=== PATIENT | female | born 1975 | race Caucasian/White ===

== ENCOUNTER 2016-07-27 15:34 | Emergency (ER) | payer OTHER ==
[~2016-07-27] VITALS: Ht 172.7 cm; Wt 77.8 kg
[2016-07-27 16:01] VITALS: TEMP 36.8; Ht 172.7 cm; Wt 77.8 kg
[2016-07-27] MEDS ORDERED: DiphenhydrAMINE HCL 50 MG/ML VIAL IV STA (17:37)
[2016-07-27] MEDS ORDERED: KETOROLAC TROMETHAMINE 30 MG/ML VIAL IV STA (17:37)
[2016-07-27] MEDS ORDERED: SODIUM CHLORIDE 0.9% 1000ML 2,000 ML IV STA (17:37)
[2016-07-27] MEDS ORDERED: ONDANSETRON INJ 2 MG/ML 2 ML VIAL IV STA (17:37)
[2016-07-27 18:10] LABS: BASO % 0.1 %; BASO ABS # 0.02 K/uL (0-0.2); COMPLETE YES; EOS % 0.4 %; HEMATOCRIT 47.7 % (37-47); IG% 0.3 %; LYMPH ABS # 2.39 K/uL (1.2-3.4); MEAN CELL VOLUME 93.7 fL (80-100); MEAN CORPUSCULAR HEMOGLOBIN 33.8 pg (25-34); MEAN CORPUSCULAR HGB CONC 36.1 g/dl (32-36); MEAN PLATELET VOLUME 12.2 fL (7.4-10.4); MONO % 7.8 %; NEUT % 74.4 %; PLATELET COUNT 300 K/uL (130-400); RED BLOOD COUNT 5.09 M/uL (4.2-5.4); WHITE BLOOD COUNT 14.08 K/uL (4.8-10.8)
[2016-07-27] MEDS ORDERED: LEVO125T5 PO (18:17)
[2016-07-27 18:27] LABS: URINE APPEARANCE CLOUDY (CLEAR); URINE COLOR DK YELLOW; URINE EPITHELIAL CELL AUTO >30 /lpf (0-5); URINE NITRITE NEG (NEG); URINE PH 7.5 (4.5-7.5); URINE SPECIFIC GRAVITY 1.027 (1.000-1.030); UROBILINOGEN POS (NEG); ZZUR CULT IF INDIC CLEAN CATCH YES
[2016-07-27 18:32] LABS: BUN/CREATININE RATIO 14.2 (10-20); CALCIUM 8.8 mg/dl (8.5-10.1); CREATININE 0.67 mg/dl (0.60-1.20); POTASSIUM 2.6 mmol/L (3.5-5.1)
[2016-07-27 18:43] LABS: THYROID STIMULATING HORMONE 2.1 uIu/ml (0.300-4.500)
[2016-07-27 18:44] LABS: MANUAL MICROSCOPIC REQUIRED? NO; REVIEW REQ? YES; SULFASALICYLIC ACID NEG (NEG); URINE BILIRUBIN NEG (NEG)
[2016-07-27] MEDS ORDERED: OPTIRAY 320 IV PRN (19:00)
--- NOTE | 2016-07-27 19:42 | DIAGNOSTIC IMAGING REPORT ---
ABDOMEN AND PELVIS CT WITH IV CONTRAST CT DOSE: 421.24 mGy.cm HISTORY: Nausea. Vomiting. vomiting, wbc elevation, lipase elevation TECHNIQUE: Multiaxial CT images of the abdomen and pelvis were performed following the use of intravenous contrast. COMPARISON STUDY: None. FINDINGS: Lung bases are clear. Liver spleen and pancreas are unremarkable. Kidneys negative for hydronephrosis. Small subcentimeter left ovarian follicular cyst. No evidence for abscess collection or obstruction. No free fluid within the pelvic cul-de-sac. IMPRESSION: 1. Small bilateral subcentimeter ovarian follicular cyst. 2. Otherwise negative study abdomen and pelvis. Electronically signed by: Jeferson Landry M.D. 07/27/2016 7:40 PM Dictated Date/Time: 07/27/2016 7:38 PM
[2016-07-27] MEDS ORDERED: SODIUM CHLORIDE 0.9% 1000ML 1,000 ML IV STA (20:02)
[2016-07-27] MEDS ORDERED: POTASSIUM CHLORIDE 20 MEQ TABCR PO STA (20:02)
[2016-07-27] MEDS ORDERED: PROMETHAZINE HCL INJ 25 MG in SODIUM CHLORIDE 0.9% 50ML 50 ML IV STA (21:38)
[2016-07-27] MEDS ORDERED: POTA20TA16 PO (21:49)
--- NOTE | 2016-07-27 21:50 | EMERGENCY ROOM VISIT NOTE ---
History Report prepared by Alexander: Aleta José Under the Supervision of: Dr. Festus Gaitna M.D. First contact with patient: 17:29 Chief Complaint: VOMITING Stated Complaint: VOMITING SINCE MONDAY, VERY SHAKEY, WEAK History of Present Illness The patient is a 40 year old female who presents to the Emergency Room with complaints of persistent vomiting starting 3 days ago. She was vomiting every 15 minutes at first. Now she is vomiting once an hour. She also had a fever for the first 2 days. She has a sore throat and abdominal pain from vomiting. She has not taken any medications for her symptoms. She is unable to keep anything down. She has not had any bowel movements or passed gas because she has been unable to eat. She has not been sleeping well. She denies any lower back pain, swelling to the legs or ankles. She denies any previous abdominal surgeries. She denies any sick contacts or exposure to chemicals. She has a history of thyroid issues. Source of History: patient Onset: 3 days ago Position: other (global) Symptom Intensity: once an hour Quality: other (vomiting) Timing: other (persistent) Associated Symptoms: + fevers, + sorethroat, + abdominal pain, No back pain Note: Pt reports being unable to sleep. Pt denies leg swelling. Review of Systems See HPI for pertinent positives & negatives. A total of 10 systems reviewed and were otherwise negative. Past Medical & Surgical Medical Problems: (1) Hypothyroidism Family History Diabetes mellitus Social History Smoking Status: Current Every Day Smoker Marital Status: single Occupation Status: employed Current/Historical Medications Scheduled Levothyroxine Sodium (Levothyroxine Sodium), 1 TAB PO DAILY Potassium Ext Rel (Klor-Con), 20 MEQ PO DAILY Allergies Coded Allergies: No Known Allergies (Unverified , 07/27/16) Physical Exam Vital Signs Date Time Temp Pulse Resp B/P (MAP) Pulse Ox O2 Delivery O2 Flow Rate FiO2 07/27/16 23:15 84 18 138/88 96 07/27/16 21:20 84 16 160/109 97 Room Air 07/27/16 19:40 77 16 113/80 97 Room Air 07/27/16 17:55 79 16 123/91 94 Room Air 07/27/16 16:01 36.8 94 16 121/94 94 Room Air Physical Exam GENERAL: Patient is dehydrated appearing and in moderate distress. HEENT: No acute trauma, normocephalic atraumatic, mucous membranes dry, no nasal congestion, no scleral icterus. NECK: No stridor, no adenopathy, no meningismus, trachea is midline. LUNGS: No dyspnea. Clear to auscultation and equal bilaterally. No wheeze, no rhonchi. HEART: Tachycardic rate with sitting up and regular rhythm. No murmurs, rubs, gallops appreciated. ABDOMEN: Soft, nontender, bowel sounds positive, no masses appreciated, no peritonitis. BACK: No midline tenderness, no CVA tenderness EXTREMITIES: Normal motion all extremities, no cyanosis, no edema. NEUROLOGIC: Alert and oriented, no acute motor or sensory deficits, no focal weakness, cranial nerves grossly intact. SKIN: No rash, no jaundice, no diaphoresis. Medical Decision & Procedures ER Provider Diagnostic Interpretation: Radiology results and stated below per my review and radiologist interpretation: ABDOMEN AND PELVIS CT WITH IV CONTRAST CT DOSE: 421.24 mGy.cm HISTORY: Nausea. Vomiting. vomiting, wbc elevation, lipase elevation TECHNIQUE: Multiaxial CT images of the abdomen and pelvis were performed following the use of intravenous contrast. COMPARISON STUDY: None. FINDINGS: Lung bases are clear. Liver spleen and pancreas are unremarkable. Kidneys negative for hydronephrosis. Small subcentimeter left ovarian follicular cyst. No evidence for abscess collection or obstruction. No free fluid within the pelvic cul-de-sac. IMPRESSION: 1. Small bilateral subcentimeter ovarian follicular cyst. 2. Otherwise negative study abdomen and pelvis. Electronically signed by: Jeferson Landry M.D. 07/27/2016 7:40 PM Dictated Date/Time: 07/27/2016 7:38 PM Laboratory Results 07/27/16 17:55 Red Blood Count 5.09, Mean Corpuscular Volume 93.7, Mean Corpuscular Hemoglobin 33.8, Mean Corpuscular Hemoglobin Concent 36.1, Mean Platelet Volume 12.2, Neutrophils (%) (Auto) 74.4, Lymphocytes (%) (Auto) 17.0, Monocytes (%) (Auto) 7.8, Eosinophils (%) (Auto) 0.4, Basophils (%) (Auto) 0.1, Neutrophils # (Auto) 10.48, Lymphocytes # (Auto) 2.39, Monocytes # (Auto) 1.10, Eosinophils # (Auto) 0.05, Basophils # (Auto) 0.02 07/27/16 17:55 Test 07/27/16 17:55 White Blood Count 14.08 K/uL (4.8-10.8) Red Blood Count 5.09 M/uL (4.2-5.4) Hemoglobin 17.2 g/dL (12.0-16.0) Hematocrit 47.7 % (37-47) Mean Corpuscular Volume 93.7 fL (80-100) Mean Corpuscular Hemoglobin 33.8 pg (25-34) Mean Corpuscular Hemoglobin Concent 36.1 g/dl (32-36) Platelet Count 300 K/uL (130-400) Mean Platelet Volume 12.2 fL (7.4-10.4) Neutrophils (%) (Auto) 74.4 % Lymphocytes (%) (Auto) 17.0 % Monocytes (%) (Auto) 7.8 % Eosinophils (%) (Auto) 0.4 % Basophils (%) (Auto) 0.1 % Neutrophils # (Auto) 10.48 K/uL (1.4-6.5) Lymphocytes # (Auto) 2.39 K/uL (1.2-3.4) Monocytes # (Auto) 1.10 K/uL (0.11-0.59) Eosinophils # (Auto) 0.05 K/uL (0-0.5) Basophils # (Auto) 0.02 K/uL (0-0.2) RDW Standard Deviation 41.5 fL (36.4-46.3) RDW Coefficient of Variation 12.0 % (11.5-14.5) Immature Granulocyte % (Auto) 0.3 % Immature Granulocyte # (Auto) 0.04 K/uL (0.00-0.02) Urine Color DK YELLOW Urine Appearance CLOUDY (CLEAR) Urine pH 7.5 (4.5-7.5) Urine Specific [place] 1.027 (1.000-1.030) Urine Protein NEG (NEG) Urine Glucose (UA) NEG (NEG) Urine Ketones 3+ (NEG) Urine Occult Blood NEG (NEG) Urine Nitrite NEG (NEG) Urine Bilirubin NEG (NEG) Urine Urobilinogen POS (NEG) Urine Leukocyte Esterase TRACE (NEG) Urine WBC (Auto) 10-30 /hpf (0-5) Urine RBC (Auto) 0-4 /hpf (0-4) Urine Hyaline Casts (Auto) 5-10 /lpf (0-5) Urine Epithelial Cells (Auto) >30 /lpf (0-5) Urine Bacteria (Auto) 2+ (NEG) Urine Renal Epithelial Cells /lpf (0-5) Urine Pathogenic Casts /lpf (0) Urine Test NEG (NEG) Anion Gap 10.0 mmol/L (3-11) Est Creatinine Clear Calc Drug Dose 123.6 ml/min Estimated GFR () 128.3 Estimated GFR (Non- 110.7 BUN/Creatinine Ratio 14.2 (10-20) Calcium Level 8.8 mg/dl (8.5-10.1) Total Bilirubin 0.5 mg/dl (0.2-1) Direct Bilirubin 0.1 mg/dl (0-0.2) Aspartate Amino Transf (AST/SGOT) 13 U/L (15-37) Alanine Aminotransferase (ALT/SGPT) 25 U/L (12-78) Alkaline Phosphatase 101 U/L (45-117) Total Protein 7.4 gm/dl (6.4-8.2) Albumin 3.2 gm/dl (3.4-5.0) Lipase 505 U/L (73-393) Thyroid Stimulating Hormone (TSH) 2.100 uIu/ml (0.300-4.500) Free Thyroxine 1.11 ng/dl (0.80-1.60) Laboratory results as reviewed by me. Medications Administered Medications (Trade) Dose Ordered Sig/Caroline Route Start Time Stop Time Status Last Admin Dose Admin Diphenhydramine HCl (Benadryl Inj) 50 mg NOW STAT IV 07/27/16 17:37 07/27/16 17:39 DC 07/27/16 18:16 50 MG Ondansetron HCl (Zofran Inj) 4 mg NOW STAT IV 07/27/16 17:37 07/27/16 17:39 DC 07/27/16 18:16 4 MG Ketorolac Tromethamine (Toradol Inj) 30 mg NOW STAT IV 07/27/16 17:37 07/27/16 17:39 DC 07/27/16 18:17 30 MG Sodium Chloride 2,000 ml @ 999 mls/hr Q2H1M STAT IV 07/27/16 17:37 07/27/16 19:37 DC 07/27/16 18:14 999 MLS/HR Sodium Chloride 1,000 ml @ 999 mls/hr Q1H1M STAT IV 07/27/16 20:02 07/27/16 21:02 DC 07/27/16 20:47 999 MLS/HR Potassium Chloride (Klor-Con Tab) 40 meq NOW STAT PO 07/27/16 20:02 07/27/16 20:03 DC 07/27/16 20:17 40 MEQ Promethazine HCl 25 mg/Sodium Chloride 51 ml @ 204 mls/hr NOW STAT IV 07/27/16 21:38 07/27/16 21:52 DC 07/27/16 22:32 204 MLS/HR Promethazine HCl (Phenergan 25MG Home Pack) 1 homepack UD ONCE PO 07/27/16 22:00 07/27/16 22:01 DC 07/27/16 22:32 1 HOMEPACK Ondansetron HCl (ZOFRAN ODT 4MG Home Pack) 1 homepack UD ONCE PO 07/27/16 22:00 07/27/16 22:01 DC 07/27/16 22:32 1 HOMEPACK ED Course 1732: The patient was evaluated in room C8. A complete history and physical exam was performed. 1736: NSS 2000 ml @ 999 mls/hr IV, Toradol Inj 30 mg IV, Zofran Inj 4 mg IV, Benadryl Inj 50 mg IV. 1844: I reevaluated the patient. She is agreeable to CT scan. 1956: I reevaluated the patient. She is feeling much better. She is agreeable to more fluids. 2001: Klor-Con Tab 40 meq PO, NSS 1000 ml @ 999 mls/hr IV. 2134: I reevaluated the patient. The potassium made her nauseous, but she was able to keep it down. She will try 1 more dose of nausea medication and go home if possible. 2137: Promethazine HCl 25 mg/Sodium Chloride 51 ml @ 204 mls/hr IV. 2157: I reevaluated the patient. I discussed results and discharge instructions : she verbalized understanding and agreement. The patient is ready for discharge. 2199: Ondansetron HCl 1 homepack PO, Promethazine HCl 1 homepack PO. 2224: I reevaluated the patient. She has not yet received the nausea medications which were ordered. 2256: I reevaluated the patient. She has received her medications now and is ready for discharge. Medical Decision Differential: Gastroenteritis, Food Borne, Esophageal Perforation, , Electrolyte Abnormality, Dehydration, Intraabdominal Infection, UTI/ Pyelonephritis, Bowel Obstruction, Biliary Pathology, amongst other pathology entertained. Medication Reconciliation: I attest that I have personally reviewed the patient 's current medication list. Blood Pressure Screening: Patient was found to have a slightly elevated blood pressure due to circumstances. I do not believe that the patient requires hypertension monitoring. 40 yr old female arrives for evaluation of nausea, vomiting and clearly dehydrated. Notes sore throat from vomiting. Abdominal discomfort without surgical abdomen by exam. Labs with mild WBC and Lipase elevation that likely are vomiting/dehydration related though with persistent symptoms and findings felt that CT abdo/pelv necessary to rule out other pathology which fortunately was negative. Given 3 L NSS bolus, PO K and feeling a bit nauseous again after K for which Phenergan given. Feeling well and wishing to go home. She is comfortable with seeing how she does at home. She adamantly denies UTI symptoms and wishes to go home. Zofran and phenergan for at home. Advised follow up with PCP for K recheck next week. Impression Primary Impression: Vomiting Additional Impressions: Gastroenteritis Hypokalemia Dehydration Scribe Attestation The scribe's documentation has been prepared under my direction and personally reviewed by me in its entirety. I confirm that the note above accurately reflects all work, treatment, procedures, and medical decision making performed by me. Departure Information Dispostion Home / Self-Care Prescriptions Potassium Ext Rel (Klor-Con) 20 Meq Tabcr 20 MEQ PO DAILY for 5 Days, #5 TAB Prov: Festus Gaitan M.D. 07/27/16 Referrals No Doctor, Assigned (PCP) Patient Instructions My [facility] Additional Instructions Please have your potassium recheck in 1 week. Return if worsening vomiting, passing out, fevers, abdominal pain or other concerns. Problem Qualifiers
[2016-07-27] MEDS ORDERED: PHENERGAN 25MG HOMEPACK PO ONE (22:00)
[2016-07-27] MEDS ORDERED: ONDANSETRON HOME PACK 4MG OD TAB PO ONE (22:00)
[2016-07-27 23:15] VITALS: BP 138/88; PULSE 84; O2SAT 96
== END 2016-07-27 23:15 | disposition home or self-care (01) ==
LOC: C.EDB 15:35 → C.EDC 23:15
DX: K52.9 Noninfective gastroenteritis and colitis, unspecified (principal); R11.10 Vomiting, unspecified; E87.6 Hypokalemia; E86.0 Dehydration; E03.9 Hypothyroidism, unspecified; Z83.3 Family history of diabetes mellitus; F17.210 Nicotine dependence, cigarettes, uncomplicated; Z79.899 Other long term (current) drug therapy